=== PATIENT | female | born 1975 | race Caucasian/White ===

== ENCOUNTER 2018-04-20 14:20 | Emergency (ER) | payer OTHER ==
[~2018-04-20] VITALS: Ht 170.2 cm; Wt 62.6 kg
== END 2018-04-20 16:46 | disposition home or self-care (01) ==
LOC: ER 14:20
DX: S60.572A Other superficial bite of hand of left hand, initial encounter (principal); W55.01XA Bitten by cat, initial encounter; Y93.89 Activity, other specified; Y92.89 Other specified places as the place of occurrence of the external cause; Y99.8 Other external cause status

== ENCOUNTER 2023-04-29 13:33 | Emergency (ER) | payer OTHER ==
[~2023-04-29] VITALS: Ht 170.2 cm; Wt 67.1 kg
== END 2023-04-29 16:01 | disposition home or self-care (01) ==
LOC: ER 13:33
DX: S61.210A Laceration without foreign body of right index finger without damage to nail, initial encounter (principal); W45.8XXA Other foreign body or object entering through skin, initial encounter; Y93.89 Activity, other specified; Y92.89 Other specified places as the place of occurrence of the external cause; Y99.8 Other external cause status; Z91.011 Allergy to milk products; Z91.013 Allergy to seafood; E03.9 Hypothyroidism, unspecified